=== PATIENT | female | born 1950 | race Caucasian/White ===

== ENCOUNTER 2020-10-30 15:18 | Outpatient (CLI) | payer MEDICARE, SELFPAY ==
--- NOTE | ~2020-10-30 | XR_ITS ---
EXAMINATION: XR hand LT min 3V DATE: 10/30/2020 15:40 INDICATION: Left hand pain and swelling. TECHNIQUE: 3 views of left hand were obtained. COMPARISON: Left wrist radiographs 09/12/2007 FINDINGS: Bone alignment is normal. No fracture. There is mild osteoarthritis of first carpometacarpa l joint, third and fifth metacarpophalangeal joints, and most of the interphalangeal joints. IMPRESSION: 1. Mild polyarticular osteoarthritis. Reviewed, dictated and finalized at location A.
== END 2020-10-30 15:19 | disposition home or self-care (01) ==
LOC: ANHIMG 15:22
PROVIDERS: PCP Family Medicine; Visit Provider Family Medicine
DX: R22.32 Localized swelling, mass and lump, left upper limb (principal); M19.042 Primary osteoarthritis, left hand
CPT/HCPCS: 73130

== ENCOUNTER 2020-11-15 14:22 | Outpatient (CLI) | payer MEDICARE, SELFPAY ==
--- NOTE | ~2020-11-15 | US_ITS ---
EXAMINATION: US soft tissue UE LT DATE: 11/15/2020 14:51 INDICATION: Lump to the left palm. TECHNIQUE: Multiple grayscale and Doppler ultrasound images of the region of concern at the ulnar dillon e of the posterior left hand were obtained. COMPARISON: None FINDINGS: Ovoid hypoechoic 8 x 5 x 7 mm lesion in the subcutaneous fat palmar to the flexor tendons at the leve l of the neck of the reportedly fourth metacarpal. No evident internal flow or surrounding hyperemia on color Doppler. The underlying tendon appears unremarkable. IMPRESSION: 1. Nonspecific 8 x 5 x 7 mm hypoechoic subcutaneous nodule along the palmar aspect of the flexor tend on to the fourth digit at the level of the neck of the fourth metacarpal. Differential would include Dupuytren's nodule, fibroma of tendon sheath. Potential tumor of tendon sheath. Schwannoma, perivascu lar tumor, lipoma or granuloma. Reviewed, dictated and finalized at location A. IMPRESSION: 1. Nonspecific 8 x 5 x 7 mm hypoechoic subcutaneous nodule along the palmar asp ect of the flexor tendon to the fourth digit at the level of the neck of the fo urth metacarpal. Differential would include Dupuytren's nodule, fibroma of tend on sheath. Potential tumor of tendon sheath. Schwannoma, perivascular tumor, li luiz or granuloma.
== END 2020-11-15 14:23 | disposition home or self-care (01) ==
LOC: ANHIMG 14:30
PROVIDERS: PCP Family Medicine; Visit Provider Family Medicine
DX: R22.32 Localized swelling, mass and lump, left upper limb (principal)
CPT/HCPCS: 76882

== ENCOUNTER 2021-06-10 14:47 | Outpatient (CLI) | payer MEDICARE, SELFPAY ==
--- NOTE | ~2021-06-10 | DEXA_ITS ---
Bone Density Report Name: KAMERON HORVATH Age: 70 Sex: Female Ethnicity: White Date of : 1950 Indication: postmenopausal; screening for osteoporosis; prior fracture; Referring Provider: BERTHA AHUJA Study: Bone densitometry was performed. Exam Date: June 10, 2021 Accession number: [id number] Bone Density: Region BMD T-score Z-score Classification AP Spine(L1-L4) 1.051 0.0 2.1 Normal Femoral Neck (Left) 0.654 -1.8 0.0 Osteopenia Total Hip (Left) 0.813 -1.1 0.4 Osteopenia Femoral Neck (Right) 0.660 -1.7 0.1 Osteopenia Total Hip (Right) 0.849 -0.8 0.7 Normal Total Hip Mean 0.831 -1.0 0.6 Normal World Health Organization criteria for BMD impression classify patients as: Normal (T-score at or above -1.0), Osteopenia (T-score between -1.0 and -2.5), or Osteoporosis (T-score at or below -2.5). 10-year Fracture Risk(1): Major Osteoporotic Fracture 16% Hip Fracture 2.6% Reported Risk Factors: [place] (), Neck BMD=0.660, BMI=23.7, previous fracture (1) FRAX(R) Version 3.08. Fracture probability calculated for an untreated patient. Fracture probability may be lower if the patient has received treatment. Previous Exams: Region Exam Age BMD T-score BMD Change BMD Change Date g/cm2 vs Baseline vs Previous AP Spine(L1-L4) 06/10/2021 70 1.051 0.0 -0.042(-3.8%)# -0.099(-8.6%)* 10/29/2016 65 1.149 0.9 0.057(5.2%)# 0.057(5.2%)# 06/20/2013 62 1.092 0.4 Total Hip(Left) 06/10/2021 70 0.813 -1.1 -0.050(-5.7%)# -0.019(-2.3%) 10/29/2016 65 0.832 -0.9 -0.030(-3.5%)# -0.030(-3.5%)# 06/20/2013 62 0.863 -0.7 Total Hip(Right) 06/10/2021 70 0.849 -0.8 -0.008(-0.9%)# 0.004(0.5%) 10/29/2016 65 0.845 -0.8 -0.012(-1.4%)# -0.012(-1.4%)# 06/20/2013 62 0.857 -0.7 *Denotes significance at 95% confidence level, LSC for AP Spine = 0.022 g/cm2, LSC for Total Hip = 0.027 g/cm2 # Denotes dissimilar scan types or analysis methods Clinical Information Provided by Patient: Has had a low trauma fracture Patient maximum height was 64 Menopause Age: 56 Drinks caffeinated beverages Onset of menses at age 12 Number of children 0 Impression: The patient has low bone mass, based on the Left Femoral Neck T-score. The patient has an estimated ten-year risk of hip fracture of 2.6% and an estimated ten-year risk of major fracture of 16%, based on the WHO FRAX algorithm. The guille
== END 2021-06-10 14:48 | disposition home or self-care (01) ==
LOC: ANHIMG 14:48
PROVIDERS: PCP Family Medicine; Visit Provider Physician Assistant
DX: Z78.0 Asymptomatic menopausal state (principal); M85.852 Other specified disorders of bone density and structure, left thigh; M85.851 Other specified disorders of bone density and structure, right thigh
CPT/HCPCS: 77080

== ENCOUNTER 2022-06-02 01:16 | Day surgery (SDC) | payer MEDICARE, SELFPAY ==
[2022-05-20 12:59] VITALS: BMI 24.2
[2022-06-02 08:35] VITALS: BP 125/45; PULSE 69; RESP 19; TEMP 36.2; O2SAT 99
[2022-06-02 08:42] LABS: Glucose Point of Care 87 mg/dl (65-105)
[2022-06-02] MEDS: LACTATED RINGERS 1,000 ML 150 ML IV CONT (08:47)
--- NOTE | 2022-06-02 09:02 | PM.HPGS ---
History of Present Illness History of Present Illness Consent: Risks, benefits, and alternatives have been discussed and questions answered. Patient agrees to proceed with procedure. Chief complaint: neoplasm screening Narrative: Rimma Dangelo is a 71 year old female Presents for screening colonoscopy. Patient was found to have adenomatous colon polyp at the time previous colonoscopy 2016. Patient reports that her current weight appetite bowel movements normal. She denies abdominal pain. She has had no bleeding. Family history noncontributory. Review of Systems Review of Systems: Review of systems noncontributory. 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/12) Fracture, humerus closed (~2015) History of bone density study (~03/11/17) History of bone density study (~06/20/13) History of mammogram (~06/25/17) History of mammogram (~06/01/16) Surgical History Surgical History History of arthroscopy of knee (~01/29/03) History of colonoscopy (~09/13/08) Family History Family History Father Diabetes mellitus Family history of elevated blood lipids Family history of cardiovascular disease Acute myocardial infarction, Onset Age: 50 Malignant neoplasm of prostate Family history of coronary artery disease Social History Social History (Updated 03/06/22 @ 12:52 by Abbey Sherwood [facility]) Years smoked: 20 Smoking status: Former smoker Tobacco type: cigarettes Alcohol intake: current Drinks per week: 1 Substance use: never Substance use type: does not use Lack of Transportation: No Lack of Food: Never True Current Housing: I Have Housing Concerned About Future Housing: No Difficulty Paying Gas/Electric Bills: No Difficulty Paying for Meds: No Currently Unemployed: No Education: Master's Degree or Higher Difficulty w/ Childcare or Family Care: No Living arrangements: alone Spiritual care concerns: No Meds Home Medications and Allergies Home Medications Medication Instructions Recorded Confirmed Type aspirin 81 mg tablet,delayed 81 mg PO DAILY 02/07/19 05/20/22 History release coenzyme Q10 10 mg capsule 10 mg PO ONCE 02/07/19 05/20/22 History multivitamin 1 tablet PO DAILY 02/07/19 05/20/22 History triamcinolone acetonide 0.1 % 1 applic topical BID #30 grams 06/17/20 05/20/22 Rx topical cream clobetasol 0.05 % topical cream 1 g topical DAILY 06/20/21 05/20/22 History hydrocortisone 2.5 % topical cream 1 applic topical BID PRN Nausea 10/28/21 05/20/22 History And Vomiting empagliflozin 10 mg tablet See Rx Instructions .Route 12/02/21 05/20/22 Rx (Jardiance) .COMPLEX #90 tabs omeprazole 20 mg tablet,delayed 20 mg PO DAILY 03/06/22 05/20/22 History release sodium,potassium,mag sulfates 17.5 See Rx Instructions PO .COMPLEX 03/12/22 05/20/22 Rx gram-3.13 gram-1.6 gram oral soln #354 mL (Suprep Bowel Prep Kit) metformin 500 mg tablet,extended See Rx Instructions .Route 03/30/22 05/20/22 Rx release 24 hr .COMPLEX #90 tabs rosuvastatin 10 mg tablet See Rx Instructions .Route 03/30/22 05/20/22 Rx .COMPLEX #90 tabs meclizine 25 mg tablet 25 mg PO TID PRN Nausea 05/20/22 05/20/22 History Allergies Allergy/AdvReac Type Severity Reaction Status Date / Time cefaclor Allergy Unknown Skin Verified 06/02/22 08:34 Reaction Vital Signs Vital Signs - 24 hr 06/02/22 08:35 Temperature 97.1 F L Pulse Rate 69 Respiratory Rate 19 Blood Pressure 125/45 L Pulse Oximetry 99 Oxygen Delivery Room Air Exam Narrative: Physical exam reveals patient to be alert. Vital signs stable. HEENT exam is unremarkable. Patient is anicteric. Lungs are clear to auscultation and percussion. Heart is without murmur or extra sounds. Abdomen bowel sounds are
--- NOTE | 2022-06-02 09:17 | WPDANESEPPF ---
Anes - Initial Pre Proc Eval Procedure: Operation Date: 06/02/22 10:00 Proposed Procedures p Screening Colonoscopy - Luis E Cordero MD Date/Time: 06/02/22 09:17 Surgeon: Luis E Cordero MD Pre Op Diagnosis: neoplasm screening Patient Data Age: 71 Gender: F Height: 1.6 m Weight: 57 kg Last Vital Signs Temp 97.1 F L 06/02/22 08:35 Pulse 69 06/02/22 08:35 Resp 19 06/02/22 08:35 BP 125/45 L 06/02/22 08:35 Pulse Ox 99 06/02/22 08:35 O2 Del Method Room Air 06/02/22 08:35 Allergies Allergy/AdvReac Type Severity Reaction Status Date / Time cefaclor Allergy Unknown Skin Verified 06/02/22 08:34 Reaction Home Medications Medication Instructions Recorded Confirmed Type aspirin 81 mg tablet,delayed 81 mg PO DAILY 02/07/19 05/20/22 History release coenzyme Q10 10 mg capsule 10 mg PO ONCE 02/07/19 05/20/22 History multivitamin 1 tablet PO DAILY 02/07/19 05/20/22 History triamcinolone acetonide 0.1 % 1 applic topical BID #30 grams 06/17/20 05/20/22 Rx topical cream clobetasol 0.05 % topical cream 1 g topical DAILY 06/20/21 05/20/22 History hydrocortisone 2.5 % topical cream 1 applic topical BID PRN Nausea 10/28/21 05/20/22 History And Vomiting empagliflozin 10 mg tablet See Rx Instructions .Route 12/02/21 05/20/22 Rx (Jardiance) .COMPLEX #90 tabs omeprazole 20 mg tablet,delayed 20 mg PO DAILY 03/06/22 05/20/22 History release sodium,potassium,mag sulfates 17.5 See Rx Instructions PO .COMPLEX 03/12/22 05/20/22 Rx gram-3.13 gram-1.6 gram oral soln #354 mL (Suprep Bowel Prep Kit) metformin 500 mg tablet,extended See Rx Instructions .Route 03/30/22 05/20/22 Rx release 24 hr .COMPLEX #90 tabs rosuvastatin 10 mg tablet See Rx Instructions .Route 03/30/22 05/20/22 Rx .COMPLEX #90 tabs meclizine 25 mg tablet 25 mg PO TID PRN Nausea 05/20/22 05/20/22 History Laboratory Tests 06/02/22 08:40 POC Capillary Glucose 87 mg/dl mg/dl (65-105) Patient hx anesthesia problems: none Family hx anesthesia problems: none Results Review: All pre-operative results and documents have been reviewed as part of the pre-operative evaluation. [facility] Past Medical History Medical History (Updated 06/02/22 @ 09:04 by Luis E Cordero MD) Acoustic neuroma (~07/30/12) Fracture, humerus closed (~2015) History of bone density study (~03/11/17) History of bone density study (~06/20/13) History of mammogram (~06/25/17) History of mammogram (~06/01/16) Surgical History Surgical History History of arthroscopy of knee (~01/29/03) History of colonoscopy (~09/13/08) Family History Family History Father Diabetes mellitus Family history of elevated blood lipids Family history of cardiovascular disease Acute myocardial infarction, Onset Age: 50 Malignant neoplasm of prostate Family history of coronary artery disease Social History Social History (Updated 03/06/22 @ 12:52 by Abbey Sherwood [facility]) Years smoked: 20 Smoking status: Former smoker Tobacco type: cigarettes Alcohol intake: current Drinks per week: 1 Substance use: never Substance use type: does not use Lack of Transportation: No Lack of Food: Never True Current Housing: I Have Housing Concerned About Future Housing: No Difficulty Paying Gas/Electric Bills: No Difficulty Paying for Meds: No Currently Unemployed: No Education: Master's Degree or Higher Difficulty w/ Childcare or Family Care: No Living arrangements: alone Spiritual care concerns: No Anes - Eval Final PreProcedure Day of Procedure 06/02/22 09:17 Patient weight: normal Heart: regular rate and rhythm Lungs: clear to auscultation Airway: Mallampati scale class II Neurological: alert and oriented Last oral intake: >/= 8 hours ASA classification: II Emergent: no Anesthetic plan:
[2022-06-02 09:58] VITALS: BP 98/44; PULSE 79; RESP 21; O2SAT 100
[2022-06-02 10:08] VITALS: BP 114/63; PULSE 79; RESP 23; O2SAT 99
[2022-06-02 10:18] VITALS: BP 119/66; PULSE 71; RESP 20; O2SAT 98
== END 2022-06-02 10:26 | disposition home or self-care (01) ==
PROVIDERS: PCP Family Medicine; Visit Provider Internal Medicine Gastroenterology
PROC: 0DJD8ZZ Inspection of Lower Intestinal Tract, Via Natural or Artificial Opening Endoscopic (ICD-10-PCS; CPT 45378; principal; 2022-06-02 10:00)
DX: Z12.11 Encounter for screening for malignant neoplasm of colon (principal); K63.5 Polyp of colon; K57.30 Diverticulosis of large intestine without perforation or abscess without bleeding; Z79.82 Long term (current) use of aspirin; Z79.84 Long term (current) use of oral hypoglycemic drugs; Z87.891 Personal history of nicotine dependence
CPT/HCPCS: 45385; 82948; 88305; J2704; J7120

== ENCOUNTER → 2022-08-18 10:41 | Outpatient (CLI) | payer MEDICARE, SELFPAY ==
--- NOTE | ~2022-08-18 | XR_ITS ---
Right Shoulder Technique: AP and axillary views were obtained. Clinical History: Pain Findings: No fracture or dislocation is seen. Osseous alignment is anatomic. Moderate to advanced AC joint degenerative changes present. Glenohumeral joint is intact. Soft tissues are unremarkable. Impression: Moderate to advanced AC joint degenerative change. Reviewed, dictated and finalized at [facility]. Impression: Moderate to advanced AC joint degenerative change.
== END ==
PROVIDERS: PCP Family Medicine; Visit Provider Family Medicine
DX: S49.91XA Unspecified injury of right shoulder and upper arm, initial encounter (principal); X58.XXXA Exposure to other specified factors, initial encounter
CPT/HCPCS: 73030

== ENCOUNTER → 2022-11-16 14:04 | Outpatient (CLI) | payer MEDICARE, SELFPAY ==
--- NOTE | ~2022-11-16 | XR_ITS ---
XR knee LT 3V 11/16/2022 14:17 Indication: Left knee pain Procedure: 3 views left knee Comparison: No prior studies for comparison. Findings: Mild osteoarthritis of the patellofemoral compartment. No fracture, subluxation or dislocat ion. No joint effusion. No foreign bodies. Impression: 1: Mild patellofemoral compartment osteoarthritis. Reviewed, dictated and finalized at location A. Impression: 1: Mild patellofemoral compartment osteoarthritis.
== END ==
PROVIDERS: PCP Family Medicine; Visit Provider Nurse Practitioner
DX: M17.12 Unilateral primary osteoarthritis, left knee (principal)
CPT/HCPCS: 73562

== ENCOUNTER → 2022-11-19 14:44 | Outpatient (CLI) | payer MEDICARE, SELFPAY ==
--- NOTE | ~2022-11-19 | CT_ITS ---
EXAMINATION: CT brain wo/w con DATE: 11/19/2022 15:07 INDICATION: Right posterior headache for 2 months TECHNIQUE: Computed tomography (CT) of the head was performed without intravenous contrast. The mA wa s adjusted according to patient size. Iterative reconstruction technique was employed. Exam dose: 12 91.38 mGy-cm total exam DLP. COMPARISON: 05/27/2012 MRI brain FINDINGS: Status post left posterior cranial fossa craniectomy with chronic diminished attenuation of the left cerebellar hemisphere, likely postoperative. No intracranial mass lesion or hemorrhage, midline shift or mass effect. Normal ventricular size. Bilateral carotid siphon internal carotid artery calcifications. There is nonspecific diminished atte nuation of the cerebral white matter, likely due to chronic small vessel ischemic changes. No subdural or epidural hematoma. The mastoid air cells and included paranasal sinuses are normally developed and aerated. No fracture or bone destruction of the cranial vault. IMPRESSION: Status post left posterior craniectomy with chronic postsurgical changes of the left cer ebellum; no acute intracranial finding Reviewed, dictated and finalized at Location [facility]. Reviewed, dictated and finalized at location A. IMPRESSION: Status post left posterior craniectomy with chronic postsurgical c hanges of the left cerebellum; no acute intracranial finding
== END ==
PROVIDERS: PCP Nurse Practitioner; Visit Provider Nurse Practitioner
DX: R51.9 Headache, unspecified (principal); G89.29 Other chronic pain
CPT/HCPCS: 70470; Q9967

== ENCOUNTER 2022-12-26 11:00 | Emergency (ER) | payer MEDICARE, SELFPAY ==
--- NOTE | ~2022-12-26 | XR_ITS ---
XR pelvis 1-2V DATE: 12/26/2022 11:53 INDICATION: Fall one week ago. Right buttock pain. TECHNIQUE: AP pelvis COMPARISON: None FINDINGS: There is a transitional first sacral vertebra with sacralization pseudoarthrosis on the rig ht, lumbarization on the left. There is severe degenerative disease at L5-S1. Normal alignment at the pubic symphysis and sacroiliac joints. No pelvic fracture or bone destruction is evident. IMPRESSION: Transitional lumbosacral vertebra Severe degenerative disc disease at L5-S1 No pelvic fracture is detected Reviewed, dictated and finalized at location A.
--- NOTE | ~2022-12-26 | XR_ITS ---
XR sacrum coccyx min 2V DATE: 12/26/2022 11:53 INDICATION: Fall one week ago. Right buttock pain TECHNIQUE: AP, angled AP and lateral views COMPARISON: None FINDINGS: There is a transitional first sacral sacralization on the right, lumbarization on the left. Severe degenerative disc disease at L5-S1. Normal alignment at the pubic symphysis and sacroiliac joints. No sacral or coccygeal fracture is detected. IMPRESSION: No fracture detected Transitional first sacral vertebra Severe degenerative disease at L5-S1 Reviewed, dictated and finalized at location A.
[2022-12-26 11:20] VITALS: BP 153/64; PULSE 71; RESP 16; TEMP 36.4; O2SAT 99
[2022-12-26 11:21] VITALS: BP 153/64; PULSE 71; RESP 16; TEMP 36.4; O2SAT 99
--- NOTE | 2022-12-26 11:25 | ED.GENADULT ---
HPI - General Adult General Chief complaint: Unspecified Stated complaint: Lower back pain Time Seen by Provider: 12/26/22 11:25 Source: patient, RN notes reviewed and old records reviewed Mode of arrival: ambulatory Limitations: no limitations History of Present Illness HPI narrative: 72-year-old female presents to [facility] with right buttock pain. Patient states that she fell 8 days ago on December 18. Has a bruise to the right buttock. Did not seek treatment at that time. Was getting into a [place] and set hard on a metal pole yesterday. Pain has increased. Walks with a normal gait. Significant bruise noted to the medial aspect to mid lower buttock. No midline tenderness. No coccyx tenderness. Onset (ago): week(s) Related Data Home Medications Medication Instructions Recorded Confirmed aspirin 81 mg tablet,delayed 81 mg PO DAILY 02/07/19 11/16/22 release omeprazole 20 mg tablet,delayed 20 mg PO DAILY 03/06/22 12/26/22 release biotin 2,500 mcg chewable tablet 2,500 mcg PO DAILY 08/18/22 12/26/22 coenzyme Q10 100 mg capsule 100 mg PO DAILY 11/09/22 12/26/22 (CoQ-10) [id number] 250 mg-dha 90 1 cap PO DAILY 11/09/22 12/26/22 mg-epa 160 [id number] capsule (Ocuvite Adult 50 Plus) Allergies Allergy/AdvReac Type Severity Reaction Status Date / Time cefaclor Allergy Unknown Skin Verified 11/16/22 13:30 Reaction Review of Systems Review of Systems: All systems reviewed & are unremarkable except as noted in HPI and below Constitutional: Constitutional: Reports no additional constitutional complaints Eyes: Eyes: Reports no additional eye complaints ENT: Reports system reviewed and no additional complaints, except as documented Cardiovascular: Cardiovascular: Reports no additional cardiovascular complaints, Denies chest pain and Denies dyspnea Respiratory: Respiratory: Reports no additional respiratory complaints, Denies chest congestion, Denies cough and Denies dyspnea Gastrointestinal: Gastrointestinal: Reports no additional gastrointestinal complaints, Denies abdominal pain, Denies nausea and Denies vomiting Musculoskeletal: Musculoskeletal: Reports as per HPI Integumentary/Breasts: Skin/Breast: Reports as per HPI Neurologic: Reports system reviewed and no additional complaints, except as documented Psychiatric: Psychiatric: Reports no additional psychiatric complaints Allergic/Immunologic: Allergic/Immunologic: Reports no additional allergic/immunologic complaints [facility] Past Medical History Medical History Acoustic neuroma (~07/30/12) Fracture, humerus closed (~2015) History of bone density study (~03/11/17) History of bone density study (~06/20/13) History of mammogram (~06/25/17) History of mammogram (~06/01/16) Surgical History Surgical History History of arthroscopy of knee (~01/29/03) History of colonoscopy (~09/13/08) Family History Family History Father Diabetes mellitus Family history of elevated blood lipids Family history of cardiovascular disease Acute myocardial infarction, Onset Age: 50 Malignant neoplasm of prostate Family history of coronary artery disease Social History Social History Years smoked: 20 Smoking status: Former smoker Tobacco type: cigarettes Alcohol intake: current Drinks per week: 1 Substance use: never Substance use type: does not use Lack of Transportation: No Lack of Food: Never True Current Housing: I Have Housing Concerned About Future Housing: No Difficulty Paying Gas/Electric Bills: No Difficulty Paying for Meds: No Currently Unemployed: No Education: Master's Degree or Higher Difficulty w/ Childcare or Family Care: No Living arrangements: alone Spiritual
== END 2022-12-26 12:11 | disposition home or self-care (01) ==
PROVIDERS: Emergency Provider Nurse Practitioner; PCP Family Medicine
DX: S30.0XXA Contusion of lower back and pelvis, initial encounter (principal); W19.XXXA Unspecified fall, initial encounter; Z87.891 Personal history of nicotine dependence; Z79.82 Long term (current) use of aspirin
CPT/HCPCS: 72170; 72220; 99213; G0463

== ENCOUNTER 2023-08-18 13:38 | Outpatient (CLI) | payer MEDICARE, SELFPAY ==
--- NOTE | ~2023-08-18 | CT_ITS ---
CT brain wo con Ordering provider: TON Carr History: 72 years Female with . R42 - Dizziness and giddiness . Comparison: November 19, 2022 Technique: CT of the head without contrast. Radiation reduction technique utilized. DLP is 645.69 mGy . FINDINGS: BRAIN PARENCHYMA AND CSF SPACES: No midline shift, mass effect or hemorrhage. The brain parenchyma a nd CSF spaces are otherwise normal. Postoperative changes in the left cerebellar area with adjacent encephalomalacia. VISUALIZED PARANASAL SINUSES: Well aerated. MASTOIDS: Well aerated. BONES: Postoperative changes in the left occipital bone otherwise, The bones appear intact. SOFT TISSUES: Visualized nasopharynx is normal. Superficial soft tissues are normal. IMPRESSION: No acute intracranial findings. Reviewed, dictated and finalized at location A.
== END 2023-08-18 13:39 ==
LOC: GOSHIMG 13:39
PROVIDERS: PCP Family Medicine; Visit Provider Nurse Practitioner
DX: R42 Dizziness and giddiness (principal)
CPT/HCPCS: 70450

== ENCOUNTER 2023-10-26 15:23 | Outpatient (CLI) | payer MEDICARE, SELFPAY ==
[2023-10-27 20:24] LABS: Red Blood Cell Folate 467 ng/mL RBC (>280)
[2023-10-28 12:23] LABS: Homocysteine 14.3 umol/L (<10.4)
[2023-10-30 01:53] LABS: Methylmalonic Acid 217 nmol/L (69-390)
[2023-10-30 14:44] LABS: Vitamin D 1,25 (OH)2 Total 40 pg/mL (18-72); Vitamin D2 1,25 (OH)2 <8 pg/mL; Vitamin D3 1,25 (OH)2 40 pg/mL
== END 2023-10-26 15:24 | disposition home or self-care (01) ==
PROVIDERS: PCP Family Medicine; Visit Provider Psychiatry & Neurology Neurology
DX: R26.89 Other abnormalities of gait and mobility (principal); R42 Dizziness and giddiness; E55.9 Vitamin D deficiency, unspecified; Z79.899 Other long term (current) drug therapy
CPT/HCPCS: 36415; 82607; 82652; 82747; 83090; 83921; 84443

== ENCOUNTER 2023-12-01 09:30 | Outpatient (CLI) | payer MEDICARE, SELFPAY ==
--- NOTE | ~2023-12-01 | MR_ITS ---
MRA HEAD History: Dizziness and giddiness Technique: 3D time of flight MRA of the head is performed. Findings: The right and left distal vertebral arteries and the basilar and posterior cerebral arterie s are normal. Right and left distal internal carotid arteries and anterior and middle cerebral arteri es are normal. There is no aneurysm, stenosis, or occlusion. Impression: No occlusion, stenosis, or aneurysm. Reviewed, dictated and finalized at location . Impression: No occlusion, stenosis, or aneurysm.
--- NOTE | ~2023-12-01 | MR_ITS ---
EXAMINATION: MR brain IAC wo/w con DATE: 12/01/2023 10:42 INDICATION: Other abnormalities of gait and immobility. Left acoustic neuroma. TECHNIQUE: Magnetic resonance imaging (MRI) of the brain, brainstem, and internal auditory canals was performed without and with 20 mL MultiHance intravenous contrast. 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 There are scattered areas of nonspecific in creased T2-weighted signal intensity in the cerebral white matter, which is within normal limits for the patient's age. There is no intracranial hemorrhage, acute infarction, or abnormal intracranial ma ss lesion. The ventricles are normal in size. The internal auditory canals are normal. The left cochl ea and semicircular canals demonstrate decreased signal intensity on T2-weighted images. The orbits a re normal. The paranasal sinuses are clear. There are changes of left posterior craniotomy. IMPRESSION: 1. 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 2. Abnormal signal involving the left cochlea and semicircular canals. This finding may be secondary to artifact from prior surgery or may be seen with labyrinthitis. Reviewed, dictated and finalized at location A. IMPRESSION: 1. 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 2. Abnormal signal involving the left cochlea and semicircular canals. This fin ding may be secondary to artifact from prior surgery or may be seen with labyri nthitis.
--- NOTE | ~2023-12-01 | US_ITS ---
EXAMINATION: US carotid duplex BI DATE: 12/01/2023 11:09 INDICATION: Dizziness and giddiness TECHNIQUE: Grayscale, color Doppler, and pulsed Doppler images of the cervical carotid arteries were obtained. The degree of vessel stenosis is placed in one of the following categories: normal, <50%, 5 0-69%, >=70% but less than near-occlusion, near-occlusion, or total occlusion. Note that percent sten osis relative to normal distal artery lumen diameter is indirectly measured from velocity measurement s as described by Rayan, et al. Radiology 2003; 229:340-346. Notes: Normal: Peak systolic velocity <125 centimeters/sec and no plaque <50%. Peak systolic velocity <125 ( EDV <40; ICA/CCA PSV ratio <2.0; used these factors only a tandem lesions or low cardiac output or co ntralateral disease) 50-69 %: PSV 125-230 (EDV 40-100; ratio 2-4) >= 70% but less than near occlusion: PSV greater than 230 (EDV > 100; ratio> 4.0) Near Occlusion: PSV that is variable; markedly narrowed lumen Occlusion: Absent flow on color/spectral Doppler and no lumen on jackson scale. COMPARISON: None. FINDINGS: RIGHT: The right common carotid artery (CCA) peak systolic velocity (PSV) is 97 cm/s. The right internal ca rotid artery (ICA) PSV is 124 cm/s. The right ICA end-diastolic velocity (EDV) is 28 cm/s. The right ICA/CCA PSV ratio is 1.3. The external carotid artery (ECA) PSV is 95 cm/s. There is antegrade flow i n the right vertebral artery. LEFT: The left CCA PSV is 66 cm/s. The left ICA PSV is 82 cm/s. The left ICA EDV is 29 cm/s. The left ICA/C CA PSV ratio is 1.3. The ECA PSV is 91 cm/s. There is antegrade flow in the left vertebral artery. IMPRESSION: 1. Less than 50% stenosis in the right internal carotid artery by sonographic criteria. 2. Less than 50% stenosis in the left internal carotid artery by sonographic criteria. Reviewed, dictated and finalized at location B. IMPRESSION: 1. Less than 50% stenosis in the right internal carotid artery by sonographic c monika. 2. Less than 50% stenosis in the left internal carotid artery by sonographic cr mateo.
== END 2023-12-01 09:31 | disposition home or self-care (01) ==
LOC: ANHIMG 09:34
PROVIDERS: PCP Family Medicine; Visit Provider Psychiatry & Neurology Neurology
DX: R26.89 Other abnormalities of gait and mobility (principal); I25.2 Old myocardial infarction
CPT/HCPCS: 70544; 70553; 93880; A9577

== ENCOUNTER 2024-07-18 11:39 | Emergency (ER) | payer MEDICARE, SELFPAY ==
--- NOTE | 2024-07-18 11:48 | ED.URI ---
HPI - URI/Sore Throat General Chief Complaint: Upper Respiratory Infection Stated Complaint: Sore Throat Time Seen by Provider: 07/18/24 12:04 Source: patient and RN notes reviewed Mode of arrival: ambulatory Limitations: no limitations History of Present Illness HPI Narrative: 73-year-old female presents with concern for sore throat, runny nose, stuffy nose for 4 days. Reports she has been using Neti pot, Sudafed, Aleve without relief. She denies fevers. MD elicited complaint: sore throat Related Data Home Medications ?Medication ?Instructions ?Recorded ?Confirmed ?Last Taken ?Type biotin 2,500 mcg chewable tablet 2,500 mcg PO DAILY 08/18/22 05/12/24 Unknown History coenzyme Q10 100 mg capsule 100 mg PO DAILY 11/09/22 05/12/24 Unknown History (CoQ-10) [id number] 250 mg-dha 90 1 cap PO DAILY 11/09/22 05/12/24 Unknown History mg-epa 160 [id number] capsule (Ocuvite Adult 50 Plus) B-complex with vitamin C 1 tablet PO DAILY 11/09/23 05/12/24 Unknown History fluticasone propionate 50 1 spray intranasal DAILY 11/09/23 05/12/24 Unknown History mcg/actuation nasal spray,suspension minoxidil 7 %-betamethasone 0.05 % ml topical BID 11/09/23 05/12/24 Unknown History topical solution cholecalciferol (vitamin D3) 250 250 mcg PO DAILY 04/11/24 05/12/24 Unknown History mcg (10,000 unit) capsule elberberry PO 04/11/24 05/12/24 Unknown History omeprazole 20 mg tablet,delayed 20 mg PO DAILY PRN 04/11/24 05/12/24 Unknown History release turmeric root extract 500 mg 500 mg PO DAILY 04/11/24 05/12/24 Unknown History capsule pseudoephedrine HCl 120 mg 120 mg PO Q12H 04/14/24 05/12/24 Unknown History tablet,extended release (Sudafed 12 Hour) Allergies Allergy/AdvReac Type Severity Reaction Status Date / Time cefaclor Allergy Unknown Skin Verified 05/12/24 08:34 Reaction Review of Systems Review of Systems: CONSTITUTIONAL: Denies malaise, chills, sweats, or fever. EYES: Denies visual changes, redness, or discharge. ENT: Reports rhinorrhea, congestion, and sore throat. CARDIOVASCULAR: Denies chest pain, palpitations, or edema. RESPIRATORY: Denies cough. Denies dyspnea. GASTROINTESTINAL: Denies abdominal pain, nausea, vomiting, diarrhea SKIN: Denies rash or itching. MUSCULOSKELETAL: Denies myalgia. NEUROLOGIC: Denies headache. 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 BPPV (benign paroxysmal positional vertigo) Acoustic neuroma (~07/30/12) History of bone density study (~06/20/13) History of mammogram (~06/01/16) History of bone density study (~03/11/17) History of mammogram (~06/25/17) Fracture, humerus closed (~2015) Surgical History Surgical History H/O cataract removal with insertion of prosthetic lens (~12/2023) left eye H/O eye surgery History of arthroscopy of knee (~01/29/03) History of colonoscopy (~09/13/08) Family History Family History Father Diabetes mellitus Family history of elevated blood lipids Family history of cardiovascular disease Acute myocardial infarction, Onset Age: 50 Malignant neoplasm of prostate Family history of coronary artery disease Social History Social History Social History: Caffeine-coffee,soda Years smoked: 20 Smoking status: Former smoker Tobacco type: cigarettes Alcohol intake: current Drinks per week: 1 Substance use: never Substance use type: does not use Do You Feel Safe in your Home?: Yes Lack of Transportation: No Lack of Food: Never True Current Housing: I Have Housing Concerned About Future Housing: No Difficulty Paying Gas/Electric Bills: No Difficulty Paying for Meds: No Currently Unemployed: No Education: Master's Degree or Higher Difficulty w/ Childcare or Family Care: No Living arrangements: alone Spiritual care concerns: No Comments At time of signature, agree with nursing past medical, surgical, social and family history. There is no relevant family history pertinent to the presenting complaint Exam Narrative: GENERAL: Well-appearing, well-nourished, and in no acute distress. HEAD: Normocephalic EYES: PERRLA, conjunctivae clear ENT: Nares clear, turbinates edematous and erythematous, clear discharge. Mucous membranes moist. TM pearly jackson with dull light reflex bilaterally; no tragal tenderness. Oropharynx not erythematous without lesions. Tonsils not enlarged and without exudate, no drooling, no hoarseness, no trismus, uvula midline. NECK: Supple. No lymphadenopathy CHEST: Clear to auscultation, breath sounds equal. No wheezing, rhonchi, rales, or stridor. No respiratory distress, speaks in full sentences. HEART: Regular rate and rhythm. No murmur heard. SKIN: Warm, dry, no rash. NEURO: Alert and oriented x3. PSYCH: Normal mood and affect Course Course Emergency Course: Patient is aware of diagnosis, understands and agrees to treatment plan. Anticipatory guidance given. Patient agrees to follow-up as directed and is aware of reasons to seek care at the emergency department. Portions of this record may have been created with voice recognition software Level of Care: Express Care Visit Vital Signs Vital signs: Reviewed. MDM - URI/Sore Throat MDM Narrative Medical decision making narrative: Differential diagnosis considered: Madrigal virus, strep pharyngitis, allergic rhinitis, upper respiratory tract infection, sinusitis, rhinosinusitis, nasopharyngitis. viral pharyngitis, otitis media, otitis externa, pneumonia, bronchitis, viral cough syndrome, viral syndrome, and influenza. Exam findings show no acute concerns or changes; patient is non-toxic appearing and is in no distress. Patient is appropriate for outpatient treatment and follow-up. Lab Data Attestation: I reviewed the patient's lab results. Critical Care Time Critical Care Time Critical Care Time: No Discharge Plan Discharge Clinical Impression: Upper respiratory infection Patient Disposition: Home Condition: Stable Instructions: Upper Respiratory Infection (ED) Additional Instructions: Your rapid strep swab was negative today at [facility]. A throat culture will be sent to the laboratory for further testing. If the test is positive, you will receive a phone call within 48 hours and an appropriate antibiotic will be initiated at that time. Your symptoms are likely due to a viral illness, which is not treated with antibiotics. Viral symptoms can be present for up to a few weeks. -Alternate Tylenol and Motrin per package directions for fever or pain. -Antihistamine medication such as Benadryl at night and Zyrtec during the day can help improve symptoms. -Eat and drink things that are easy to swallow, like tea or soup, or popsicles to suck on. -Oral rinses such as: Salt water gargles and/or may use topical anesthetic (eg. Chloraseptic spray) or lozenges to relieve dryness or throat pain). -Frequent hand washing or hand retail coverage merchandiser is one of the best ways to prevent spread of infection. -Follow up with primary care provider in 2-3 days if condition is not improving; or seek ER visit if you have trouble breathing, cannot drink enough fluids, have muffled voice, difficulty opening your mouth, or severe swelling. Patient Language: Georgian Prescriptions: New methylprednisolone [Medrol ([place])] 4 mg tablets,dose pack See Rx Instructions .ROUTE .COMPLEX Qty: 21 0RF Rx Instructions: orally per package directions ipratropium bromide 21 mcg (0.03 %) spray,non-aerosol 2 spray NASAL TID PRN (Reason: nasal drainage) Qty: 30 0RF Rx Instructions: administer into each nostril No Action omeprazole 20 mg tablet,delayed release (DR/EC) 20 mg PO DAILY PRN biotin 2,500 mcg tablet,chewable 2,500 mcg PO DAILY fluticasone propionate 50 mcg/actuation spray,suspension 1 spray intranasal DAILY Rx Instructions: administer into each nostril B-complex with vitamin C Tablet 1 tablet PO DAILY minoxidil-betamethasone 7-0.05 % solution topical BID elberberry PO turmeric root extract 500 mg capsule 500 mg PO DAILY cholecalciferol (vitamin D3) 250 mcg (10,000 unit) capsule 250 mcg PO DAILY alendronate 70 mg tablet 70 mg PO WEEKLY Qty: 12 1RF pseudoephedrine HCl [Sudafed 12 Hour] 120 mg tablet extended release 120 mg PO Q12H coenzyme Q10 [CoQ-10] 100 mg capsule 100 mg PO DAILY Ocuvite Adult 50 Plus 250 mg (90 mg-160 mg) capsule 1 cap PO DAILY ipratropium bromide 21 mcg (0.03 %) spray,non-aerosol 2 spray intranasal BID 30 Days Qty: 30 2RF Rx Instructions: administer into each nostril metformin 500 mg tablet extended release 24 hr See Rx Instructions .ROUTE .COMPLEX Qty: 90 1RF Dose Instruction: Take 1 Tablet (500 mg) by mouth daily. Rx Instructions: Take 1 Tablet (500 mg) by mouth daily. Jardiance 10 mg tablet See Rx Instructions .ROUTE .COMPLEX Qty: 90 1RF Dose Instruction: Take 1 Tablet (10 mg) by mouth daily. Rx Instructions: Take 1 Tablet (10 mg) by mouth daily. rosuvastatin 20 mg tablet 20 mg PO DAILY Qty: 90 1RF Follow-up/Referrals: Juliana Encinas DO [Primary Care Provider] - Time of Disposition: 12:27
[2024-07-18 11:56] VITALS: BP 130/65; PULSE 75; RESP 16; TEMP 35.9; O2SAT 97
[2024-07-18 12:03] LABS: EDSTREPNEGPOS1 Negative (Negative)
== END 2024-07-18 12:29 | disposition home or self-care (01) ==
PROVIDERS: Emergency Provider Nurse Practitioner; PCP Family Medicine
DX: J06.9 Acute upper respiratory infection, unspecified (principal); Z87.891 Personal history of nicotine dependence
CPT/HCPCS: 87081; 87880; 99213; G0463